=== PATIENT | male | born 1995 | race Caucasian/White ===

== ENCOUNTER 2020-06-11 08:44 | Emergency (ER) | payer OTHER ==
[~2020-06-11] VITALS: Ht 190.5 cm; Wt 95.2 kg
[~2020-06-11 08:44] MED LIST: BACPOLTO30 TP; CYCL10 PO; MULVITMINE PO; Naprosyn500 MG PO; OXYACE5T PO
== END 2020-06-11 10:11 | disposition home or self-care (01) ==
LOC: ER 08:44
DX: S61.012A Laceration without foreign body of left thumb without damage to nail, initial encounter (principal); Z23 Encounter for immunization; W26.0XXA Contact with knife, initial encounter
CPT/HCPCS: 12001; 90471; 90714; 99282-25

== ENCOUNTER 2022-03-31 07:05 | Day surgery (SDC) | payer OTHER ==
[~2022-03-31] VITALS: Ht 188 cm; Wt 82.6 kg
--- NOTE | 2022-03-31 08:15 | NUR ---
03/31/22 0815 Ann Astorga CALL LIGHT WITHIN REACH
--- NOTE | 2022-03-31 09:02 | NUR ---
03/31/22 0902 Jeannette Go PATIENT INJECTED OUT IN PRE OP BY DR REED.
== END 2022-03-31 09:45 | disposition home or self-care (01) ==
LOC: ORSCSDS 07:05
PROVIDERS: Orthopaedic Surgery
PROC: 0JBG0ZZ Excision of Right Lower Arm Subcutaneous Tissue and Fascia, Open Approach (ICD-10-PCS; principal; 2022-03-31 08:30)
DX: L72.0 Epidermal cyst (principal); D21.10 Benign neoplasm of connective and other soft tissue of unspecified upper limb, including shoulder; R22.30 Localized swelling, mass and lump, unspecified upper limb; F17.210 Nicotine dependence, cigarettes, uncomplicated
CPT/HCPCS: 88304; J0690; J2250; J3010; J7120